=== PATIENT | female | born 1960 | race Caucasian/White ===

== ENCOUNTER 2024-06-07 06:22 | Day surgery (SDC) | payer BC, SELFPAY | END 2024-06-07 13:20 | disposition home or self-care (01) | LOC: GI 06:22 | PROVIDERS: ATTENDING PHYSICIAN Internal Medicine Gastroenterology | DX: Z12.11 Encounter for screening for malignant neoplasm of colon (principal); D12.2 Benign neoplasm of ascending colon; D12.3 Benign neoplasm of transverse colon; D12.6 Benign neoplasm of colon, unspecified; K63.5 Polyp of colon; Z86.0100 Personal history of colon polyps, unspecified; K64.0 First degree hemorrhoids | CPT/HCPCS: 45385; 45380; 88305 ==